=== PATIENT | female | born 1995 | race Caucasian/White ===

== ENCOUNTER 2017-03-24 22:16 | Emergency (ER) | payer OTHER ==
[~2017-03-24] VITALS: Ht 157.5 cm; Wt 60.7 kg
[2017-03-24 22:19] VITALS: BP 123/84; TEMP 37.3; Ht 157.5 cm; Wt 60.7 kg
[2017-03-24] MEDS ORDERED: IBUPROFEN 600 MG TAB PO STA (22:33)
[2017-03-24] MEDS ORDERED: LURA40TA PO (22:49)
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
[2017-03-24 23:50] VITALS: PULSE 79; O2SAT 99
--- NOTE | 2017-03-25 06:40 | DIAGNOSTIC IMAGING REPORT ---
RIGHT KNEE 3 VIEWS CLINICAL HISTORY: Right knee pain and swelling following injury. COMPARISON: None FINDINGS: Alignment of the right knee is anatomic. There is no acute fracture or joint effusion. Joint spaces are preserved. IMPRESSION: No acute fracture or joint effusion of the right knee. Electronically signed by: Esdras Zurita M.D. 03/25/2017 6:38 AM Dictated Date/Time: 03/25/2017 6:38 AM
== END 2017-03-24 23:50 | disposition home or self-care (01) ==
LOC: C.EDB 22:18 → C.EDC 23:50
DX: S80.01XA Contusion of right knee, initial encounter (principal); W22.8XXA Striking against or struck by other objects, initial encounter; F31.9 Bipolar disorder, unspecified

== ENCOUNTER 2017-05-22 18:41 | Emergency (ER) | payer BC, OTHER ==
[~2017-05-22] VITALS: Ht 158.8 cm; Wt 63.2 kg
[~2017-05-22 18:41] MED LIST: LURA40TA PO
[2017-05-22 18:46] VITALS: TEMP 36.9; Ht 158.8 cm; Wt 63.2 kg
--- NOTE | 2017-05-22 19:59 | EMERGENCY ROOM VISIT NOTE ---
History First contact with patient: 19:24 Chief Complaint: GI ASSESSMENT Stated Complaint: HAS AN ENDOSCOPY TODAY NOW C/O SEVERE PAIN Nursing Triage Summary: c/o lower abdominal pain started after I tried to eat today. I wasnt feeling really well before I tried to eat and now I feel worse. History of Present Illness The patient is a 21 year old female who presents to the Emergency Room with complaints of severe upper abdominal pain that started a few hours prior to arrival. The patient has had chronic abdominal pain for the last several weeks. She had an endoscopy earlier today that revealed mild esophagitis related to GERD. The patient was instructed to try [id number] Prilosec. After the procedure, the patient went out to lunch. The pain started after eating. She describes it as a severe cramping sensation. She also feels bloated. She denies any nausea or vomiting. She denies any diarrhea. She is otherwise been healthy recently. She denies any fever or chills. She denies any heavy use of NSAIDs. She does not smoke. No heavy alcohol use Review of Systems 10 system review performed and negative unless noted in HPI or below Past Medical/Surgical History Chronic abdominal pain, otherwise healthy Family History Hypertension Social History Smoking Status: Never Smoker Smokeless Tobacco Use: No Alcohol Use: occasionally Housing Status: lives with family Current/Historical Medications Scheduled Jpexqtc-Ecnbkjpzhrmvv-Ednvezyi (Excedrin Migraine), 2 TABS PO prn ud Control Pills ( Control Pills), 1 TAB PO QPM Lamotrigine (Lamictal), 500 MG PO QPM Physical Exam Vital Signs Date Time Temp Pulse Resp B/P (MAP) Pulse Ox O2 Delivery O2 Flow Rate FiO2 05/22/17 22:29 91 18 107/72 99 Room Air 05/22/17 21:21 90 20 113/79 97 Room Air 05/22/17 20:38 104 20 116/54 98 Room Air 05/22/17 18:46 36.9 105 18 106/65 96 Room Air Physical Exam VITALS: Vitals are noted on the nurse's note and reviewed by myself. Vital signs stable. GENERAL: 21-year-old female, in no acute distress, nondiaphoretic, well- developed well-nourished. SKIN: The skin was without rashes, erythema, edema, or bruising. HEAD: Normocephalic atraumatic. MOUTH: Mucous membranes slightly dry NECK: Supple without nuchal rigidity. HEART: Regular rate and rhythm without murmurs gallops or rubs. LUNGS: Clear to auscultation bilaterally without wheezes, rales or rhonchi. No accessory muscle use. ABDOMEN: Positive bowel sounds x 4.Soft, nontender, without organomegaly. No guarding or rebound tenderness. MUSCULOSKELETAL: No muscle atrophy, erythema, or edema noted. Strength 5/5 throughout. NEURO: Patient was alert and oriented to person place and time. Normal sensation to touch. No focal neurological deficits. Medical Decision & Procedures ER Provider Diagnostic Interpretation: GALLBLADDER-ABD LIMITED HISTORY: 21 years-old Female upper abd pain s/p endoscopy pain is worse with eating COMPARISON: Radiographs 05/22/2017 TECHNIQUE: Multiple real-time sonographic images of the abdominal right upper quadrant were obtained assessing grayscale appearance and color flow. FINDINGS: Image pancreas is unremarkable. Details obscured by bowel gas. The hepatic parenchyma is within normal limits. Gallbladder is unremarkable without cholelithiasis or sonographic evidence of acute cholecystitis. Common bile duct is normal, 0.3 cm. Right kidney measures 11.5 cm in length and demonstrates no hydronephrosis or shadowing calculi. IMPRESSION: Unremarkable right upper quadrant abdominal ultrasound without cholelithiasis, sonographic evidence of acute cholecystitis or biliary ductal dilation. The above report was generated using voice recognition software. It may contain grammatical, syntax or spelling errors. Electronically signed by: Mahendra Leo M.D. 05/22/2017 9:56 PM Dictated Date/Time: 05/22/2017 9:54 PM The status of this report is Signed. Draft = Not yet reviewed or approved by Radiologist. Signed = Reviewed and approved by Radiologist. <AttendingPhy></AttendingPhy> <FamilyPhy>Amy Rosado D.ONathaniel</FamilyPhy> < PrimaryPhy>Amy Rosado D.O.</PrimaryPhy> <UnitNumber>[id number]</ UnitNumber> <VisitNumber>[id number]</VisitNumber> ABDOMEN 2VIEW W/PA CHEST RTN HISTORY: 21 years-old Female acute upper abdominal pain had endoscopy today COMPARISON: None available TECHNIQUE: Frontal view of the chest with erect and supine views of the abdomen FINDINGS: Cardiomediastinal and hilar silhouettes are within normal limits. No pneumothorax, pleural effusion or focal airspace consolidation. No pneumoperitoneum on the upright projection. High attenuating material is seen in the region of the gastric lumen suggesting ingested material. Bowel gas pattern is nonobstructive. The liver appears mildly prominent in size. No urolithiasis or fracture is identified. IMPRESSION: 1. No acute cardiopulmonary process. 2. Nonobstructive bowel gas pattern without pneumoperitoneum. The above report was generated using voice recognition software. It may contain grammatical, syntax or spelling errors. Electronically signed by: Mahendra Leo M.D. 05/22/2017 9:13 PM Dictated Date/Time: 05/22/2017 9:12 PM The status of this report is Signed. Draft = Not yet reviewed or approved by Radiologist. Signed = Reviewed and approved by Radiologist. <AttendingPhy></AttendingPhy> <FamilyPhy>Amy Rosado D.O.</FamilyPhy> < PrimaryPhy>Amy Rosado D.O.</PrimaryPhy> <UnitNumber>[id number]</ UnitNumber> <VisitNumber>[id number] Laboratory Results 05/22/17 20:02 Red Blood Count 4.17, Mean Corpuscular Volume 88.5, Mean Corpuscular Hemoglobin 31.2, Mean Corpuscular Hemoglobin Concent 35.2, Mean Platelet Volume 8.7, Neutrophils (%) (Auto) 65.6, Lymphocytes (%) (Auto) 26.4, Monocytes (%) (Auto) 7.1, Eosinophils (%) (Auto) 0.5, Basophils (%) (Auto) 0.3, Neutrophils # (Auto) 6.24, Lymphocytes # (Auto) 2.51, Monocytes # (Auto) 0.68, Eosinophils # (Auto) 0.05, Basophils # (Auto) 0.03 05/22/17 20:02 Test 05/22/17 20:02 05/22/17 20:35 White Blood Count 9.52 K/uL (4.8-10.8) Red Blood Count 4.17 M/uL (4.2-5.4) Hemoglobin 13.0 g/dL (12.0-16.0) Hematocrit 36.9 % (37-47) Mean Corpuscular Volume 88.5 fL (80-100) Mean Corpuscular Hemoglobin 31.2 pg (25-34) Mean Corpuscular Hemoglobin Concent 35.2 g/dl (32-36) Platelet Count 345 K/uL (130-400) Mean Platelet Volume 8.7 fL (7.4-10.4) Neutrophils (%) (Auto) 65.6 % Lymphocytes (%) (Auto) 26.4 % Monocytes (%) (Auto) 7.1 % Eosinophils (%) (Auto) 0.5 % Basophils (%) (Auto) 0.3 % Neutrophils # (Auto) 6.24 K/uL (1.4-6.5) Lymphocytes # (Auto) 2.51 K/uL (1.2-3.4) Monocytes # (Auto) 0.68 K/uL (0.11-0.59) Eosinophils # (Auto) 0.05 K/uL (0-0.5) Basophils # (Auto) 0.03 K/uL (0-0.2) RDW Standard Deviation 39.4 fL (36.4-46.3) RDW Coefficient of Variation 12.4 % (11.5-14.5) Immature Granulocyte % (Auto) 0.1 % Immature Granulocyte # (Auto) 0.01 K/uL (0.00-0.02) Anion Gap 6.0 mmol/L (3-11) Est Creatinine Clear Calc Drug Dose 101.4 ml/min Estimated GFR () 125.8 Estimated GFR (Non- 108.5 BUN/Creatinine Ratio 17.2 (10-20) Calcium Level 9.3 mg/dl (8.5-10.1) Total Bilirubin 0.3 mg/dl (0.2-1) Aspartate Amino Transf (AST/SGOT) 16 U/L (15-37) Alanine Aminotransferase (ALT/SGPT) 18 U/L (12-78) Alkaline Phosphatase 113 U/L (45-117) Total Protein 8.2 gm/dl (6.4-8.2) Albumin 3.9 gm/dl (3.4-5.0) Globulin 4.3 gm/dl (2.5-4.0) Albumin/Globulin Ratio 0.9 (0.9-2) Lipase 118 U/L (73-393) Urine Test NEG (NEG) Medications Administered Medications (Trade) Dose Ordered Sig/Simran Route Start Time Stop Time Status Last Admin Dose Admin Pantoprazole Sodium 40 mg/ Syringe 10 ml @ 5 mls/min NOW ONCE IV 05/22/17 20:00 05/22/17 20:01 DC 05/22/17 20:37 5 MLS/MIN Miscellaneous Medication (Gi Cocktail) 24 ml ONE ONCE PO 05/22/17 20:00 05/22/17 20:01 DC 05/22/17 20:37 24 ML Sodium Chloride 1,000 ml @ 999 mls/hr Q1H1M ONCE IV 05/22/17 20:00 05/22/17 21:00 DC 05/22/17 20:37 999 MLS/HR Morphine Sulfate (MoRPHine SULFATE INJ) 4 mg ONE STAT IV 05/22/17 21:42 05/22/17 21:58 DC 05/22/17 22:04 4 MG Ondansetron HCl (Zofran Inj) 4 mg NOW STAT IV 05/22/17 21:42 05/22/17 21:58 DC 05/22/17 22:04 4 MG ED Course Patient was seen and examined Vital signs including blood pressure were reviewed medications list was verified with patient Labs were obtained, and a saline lock was established the patient was given pantoprazole 40 mg IV and a GI cocktail. She was hydrated with 1 L of normal saline Imaging was performed and reviewed Upon reevaluation, the patient was still having pain. She was given morphine 4 mg IV and Zofran 4 mg IV I reviewed discharge instructions the patient. They voiced understanding and had no further questions. Medical Decision Differential diagnosis: GERD, esophagitis, peptic ulcer disease, perforation, gallbladder disease, pancreatitis, biliary colic, hepatitis This patient is a 21-year-old female that presents to emergency department with complaints of severe abdominal pain following an endoscopy today. Her abdominal exam was benign. The pain was worse after eating. It is possible that she is having discomfort and bloating from the procedure itself. She was also told that she has mild esophagitis from GERD. She was given a GI cocktail in the emergency department with minimal improvement. I ordered abdominal films that showed no signs of perforation. We also obtained a gallbladder ultrasound. This was also normal. It sounds like the patient's abdominal pain is chronic in nature. She is following closely with the specialist. I advised that she follow-up with her primary care physician or GI doctor within the next 1-2 days. I also advised that she return to the emergency department immediately with any worsening abdominal pain or new symptoms such as fever, vomiting or severe diarrhea. The patient and the patient's mother are in agreement with this plan, and she was discharged in good condition This chart was completed in part utilizing [employer] Voice Recognition software. Attempts were made to minimize the grammatical errors, random word insertions, pronoun errors and incomplete sentences. Any formal questions or concerns about the content, text or information contained within the body of this dictation should be directly addressed to the provider for clarification. Blood Pressure Screening Patient's blood pressure: Normal blood pressure Impression Primary Impression: Abdominal pain Departure Information Dispostion Home / Self-Care Condition GOOD Referrals Amy Rosado D.O. (PCP) Kathy Andrews M.D. Patient Instructions My [facility] Additional Instructions You were evaluated in the emergency department for abdominal pain. The imaging performed in the emergency department did not show any abnormal findings. It is very important for you to be evaluated by your physician or GI specialist within the next 1-2 days You may also try Prilosec, which is an qxjz-raa-mfdobzg medication to see if that'll help with your symptoms. Return to the emergency department if you have any of the following symptoms: -Fever of 103F or greater -Persistent vomiting - Persistent diarrhea -Lethargy -Chest pain -Shortness of breath -Worsening pain
[2017-05-22] MEDS ORDERED: GI COCKTAIL PO ONE (20:00)
[2017-05-22] MEDS ORDERED: SODIUM CHLORIDE 0.9% 1000ML 1,000 ML IV ONE (20:00)
[2017-05-22] MEDS ORDERED: PANTOprazole INJ 40 MG in SYRINGE 0 ML IV ONE (20:00)
[2017-05-22 20:20] LABS: BASO % 0.3 %; BASO ABS # 0.03 K/uL (0-0.2); COMPLETE YES; EOS % 0.5 %; HEMATOCRIT 36.9 % (37-47); IG% 0.1 %; LYMPH % 26.4 %; LYMPH ABS # 2.51 K/uL (1.2-3.4); MEAN CELL VOLUME 88.5 fL (80-100); MEAN CORPUSCULAR HEMOGLOBIN 31.2 pg (25-34); MEAN CORPUSCULAR HGB CONC 35.2 g/dl (32-36); MEAN PLATELET VOLUME 8.7 fL (7.4-10.4); MONO % 7.1 %; NEUT % 65.6 %; PLATELET COUNT 345 K/uL (130-400); RED BLOOD COUNT 4.17 M/uL (4.2-5.4); WHITE BLOOD COUNT 9.52 K/uL (4.8-10.8)
[2017-05-22] MEDS ORDERED: ASPI-390 PO (20:22)
[2017-05-22] MEDS ORDERED: ALUMINUM/MAGNESIUM SUSP 30 ML UDC ONE (20:28)
[2017-05-22] MEDS ORDERED: LIDOCAINE HCL 2% VISC SOLN 20 ML UDC ONE (20:28)
[2017-05-22 20:43] LABS: BUN/CREATININE RATIO 17.2 (10-20); CALCIUM 9.3 mg/dl (8.5-10.1); CREATININE 0.79 mg/dl (0.60-1.20); POTASSIUM 3.8 mmol/L (3.5-5.1)
[2017-05-22 20:46] LABS: ALB/GLOB RATIO 0.9 (0.9-2)
--- NOTE | 2017-05-22 21:15 | DIAGNOSTIC IMAGING REPORT ---
ABDOMEN 2VIEW W/PA CHEST RTN HISTORY: 21 years-old Female acute upper abdominal pain had endoscopy today COMPARISON: None available TECHNIQUE: Frontal view of the chest with erect and supine views of the abdomen FINDINGS: Cardiomediastinal and hilar silhouettes are within normal limits. No pneumothorax, pleural effusion or focal airspace consolidation. No pneumoperitoneum on the upright projection. High attenuating material is seen in the region of the gastric lumen suggesting ingested material. Bowel gas pattern is nonobstructive. The liver appears mildly prominent in size. No urolithiasis or fracture is identified. IMPRESSION: 1. No acute cardiopulmonary process. 2. Nonobstructive bowel gas pattern without pneumoperitoneum. The above report was generated using voice recognition software. It may contain grammatical, syntax or spelling errors. Electronically signed by: Mahendra Leo M.D. 05/22/2017 9:13 PM Dictated Date/Time: 05/22/2017 9:12 PM
[2017-05-22] MEDS ORDERED: MoRPHine SULFATE 4 MG/ML 1 ML CARP\\VIAL IV STA (21:42)
[2017-05-22] MEDS ORDERED: ONDANSETRON INJ 2 MG/ML 2 ML VIAL IV STA (21:42)
--- NOTE | 2017-05-22 21:57 | DIAGNOSTIC IMAGING REPORT ---
GALLBLADDER-ABD LIMITED HISTORY: 21 years-old Female upper abd pain s/p endoscopy pain is worse with eating COMPARISON: Radiographs 05/22/2017 TECHNIQUE: Multiple real-time sonographic images of the abdominal right upper quadrant were obtained assessing grayscale appearance and color flow. FINDINGS: Image pancreas is unremarkable. Details obscured by bowel gas. The hepatic parenchyma is within normal limits. Gallbladder is unremarkable without cholelithiasis or sonographic evidence of acute cholecystitis. Common bile duct is normal, 0.3 cm. Right kidney measures 11.5 cm in length and demonstrates no hydronephrosis or shadowing calculi. IMPRESSION: Unremarkable right upper quadrant abdominal ultrasound without cholelithiasis, sonographic evidence of acute cholecystitis or biliary ductal dilation. The above report was generated using voice recognition software. It may contain grammatical, syntax or spelling errors. Electronically signed by: aMhendra Leo M.D. 05/22/2017 9:56 PM Dictated Date/Time: 05/22/2017 9:54 PM
[2017-05-22 22:29] VITALS: BP 107/72; PULSE 91; O2SAT 99
[2017-05-22] MEDS ORDERED: NORCO 5/325MG HOME PACK PO ONE (22:45)
[2017-05-22] MEDS ORDERED: LAMO100T16 PO (22:49)
[2017-05-22] MEDS ORDERED: BCPILLS PO (22:49)
== END 2017-05-22 22:54 | disposition home or self-care (01) ==
LOC: C.EDB 18:42
DX: R10.10 Upper abdominal pain, unspecified (principal); G89.29 Other chronic pain; K21.0 Gastro-esophageal reflux disease with esophagitis; Z98.890 Other specified postprocedural states; Z82.49 Family history of ischemic heart disease and other diseases of the circulatory system; Z79.3 Long term (current) use of hormonal contraceptives; Z79.899 Other long term (current) drug therapy